=== PATIENT | female | born 1955 | race African-American/Black ===

== ENCOUNTER → 2025-07-29 | Outpatient (CLI) | payer BC ==
--- NOTE | 2025-07-29 13:56 | DVH ---
Procedure: [facility] [place] BONE 3 PHASE Exam Date: 07/29/2025 08:04 AM Clinical History: HISTORY OF TOTAL BILATERAL KNEE REPLACEMENT Comparison Study: None Nuclear Medicine Three-Phase Bone Scan Technique: Following the intravenous administration of 5 millicuries of technetium 99m MDP dynamic blood flow im ages and static and blood pool images were obtained. Delayed planar images were obtained at 3 hours. Findings: Angiographic and tissue phase images of the knees are normal. Delayed scale phase spot views of the knees demonstrate mild fairly symmetric periprosthetic uptake s urrounding both total knee arthroplasties. Activity appears fairly uniform along the bone hardware in terfaces with slight asymmetry at the right lateral femoral condyle although likely within normal li mits. Impression: No convincing evidence for loosening or other complication.
== END | disposition home or self-care (01) ==
LOC: XYW 07:01
PROVIDERS: ATTEND Physician Assistant
DX: Z96.653 Presence of artificial knee joint, bilateral (principal)
CPT/HCPCS: 78315; A9503